=== PATIENT | female | born 1980 | race Caucasian/White ===

== ENCOUNTER 2020-04-20 22:05 | Observation (INO) ==
[2020-04-20 22:28] LABS: Basophils % 0.1 % (0.0-0.8); Hematocrit 36.9 VOL% (35.7-47.0); Hemoglobin 12.5 GM/DL (12.0-16.0); Immature Granulocytes % 0.9 %; Lymphocytes # 0.4 10*3/uL (1.4-4.0); Mean Corpuscular HGB Conc 33.9 GM/DL (32-36); Mean Corpuscular Volume 88.3 FL (87-102); Monocytes % 4.1 % (1.7-12.7); Neutrophils % 90.9 % (38.7-73.9); Platelet Count 275 T/CUMM (130-400); Red Blood Count 4.18 MC/CUMM (3.8-5.5); Red Cell Distribution Width 13.2 % (9.3-17.3)
[2020-04-20 22:47] LABS: Alanine Aminotransferase 63 U/L (13-56); Albumin 2.4 G/DL (3.4-5.0); Alkaline Phosphatase 78 U/L (45-117); Aspartate Amino Transferase 38 U/L (0-37); Bilirubin,Total < 0.39 MG/DL (0.2-1.0); Blood Urea Nitrogen 10 MG/DL (7-18); Calcium 8.5 MG/DL (8.5-10.1); Estimated Glom Filtration Rate 70 ML/MIN; Glucose 137 MG/DL (74-106); Total Protein 6.9 G/DL (6.4-8.3)
[2020-04-21] MEDS ORDERED: ONDANSETRON 4 MG/2 ML VIAL IV PRN (02:13)
[2020-04-21] MEDS ORDERED: ACETAMINOPHEN 325 MG TABLET PO PRN (02:13)
[2020-04-21] MEDS: SODIUM CHLORIDE 0.9% 1,000 ML IV SCH ×2 (02:38→09:54)
[2020-04-21] MEDS: DEXAMETHASONE 4 MG/1 ML VIAL IV SCH ×4 (02:41→21:23)
[2020-04-21] MEDS: FAMOTIDINE 20 MG/2 ML VIAL IV SCH ×3 (02:44→21:23)
[2020-04-21] MEDS: PIPERACILLIN/TAZOBACTAM 3,375 MG in SODIUM CHLORIDE 0.9% 100 ML IV SCH ×3 (02:45→17:30)
[2020-04-21 02:49] LABS: Band Neutrophils 2 % (0-10); Lymphocytes 3 % (20-55); Platelet Estimate Normal; Segmented Neutrophils 92 % (50-85); Total Cells Counted 100
[2020-04-21 07:06] LABS: Basophils % 0.1 % (0.0-0.8); Hematocrit 36.2 VOL% (35.7-47.0); Hemoglobin 12.2 GM/DL (12.0-16.0); Immature Granulocytes Absolute 0.08 #; Lymphocytes # 0.7 10*3/uL (1.4-4.0); Lymphocytes % 8.7 % (21.3-54.2); Mean Corpuscular HGB Conc 33.7 GM/DL (32-36); Mean Corpuscular Volume 87.4 FL (87-102); Mean Platelet Volume 9.2 FL (9.6-12.0); Monocytes % 2.9 % (1.7-12.7); Neutrophils % 87.3 % (38.7-73.9); Platelet Count 287 T/CUMM (130-400); Red Blood Count 4.14 MC/CUMM (3.8-5.5); Red Cell Distribution Width 13.2 % (9.3-17.3)
[2020-04-21 07:29] LABS: Albumin 2.3 G/DL (3.4-5.0); Bilirubin,Total 0.7 MG/DL (0.2-1.0); Calcium 8.5 MG/DL (8.5-10.1); Total Protein 6.7 G/DL (6.4-8.3)
[2020-04-21 07:52] LABS: Anisocytosis 1+; Band Neutrophils 15 % (0-10); Lymphocytes 5 % (20-55); Platelet Estimate Normal; Segmented Neutrophils 77 % (50-85); Total Cells Counted 100
[2020-04-21] MEDS ORDERED: CYCLOBENZAPRINE 10 MG TABLET PO PRN (07:57)
[2020-04-21] MEDS ORDERED: MELATONIN 3 MG TABLET PO PRN (07:57)
[2020-04-21] MEDS: PANTOPRAZOLE 40 MG TABLET PO SCH ×2 (08:41→21:24)
[2020-04-21] MEDS: DOCUSATE SODIUM 100 MG CAPSULE PO SCH ×2 (08:41→21:23)
[2020-04-21] MEDS ORDERED: DEXAMETHASONE 4 MG TABLET PO SCH (09:00)
[2020-04-21] MEDS: FUROSEMIDE 20 MG TABLET PO SCH (11:32)
[2020-04-21] MEDS: RIVAROXABAN 20 MG TABLET PO SCH (11:32)
[2020-04-21] MEDS: SPIRONOLACTONE 50 MG TABLET PO SCH ×2 (11:32→21:22)
[2020-04-21] MEDS: HYDROXYCHLOROQUINE 200 MG TABLET PO SCH (11:32)
[2020-04-21] MEDS: CEFUROXIME 500 MG TABLET PO SCH ×2 (11:32→21:23)
[2020-04-21] MEDS: DEXTROMETHORPHAN ER 6 MG/ML 90 ML/BOTTLE PO PRN ×2 (11:33→23:55)
[2020-04-21] MEDS ORDERED: LEFLUNOMIDE 10 MG TABLET PO SCH (21:00)
[2020-04-21] MEDS: PRAMIPEXOLE 0.25 MG TABLET PO SCH (21:23)
[2020-04-21] MEDS: ASPIRIN CHEW 81 MG TABLET PO SCH (21:23)
[2020-04-21] MEDS: CETIRIZINE 10 MG TABLET PO SCH (21:24)
[2020-04-21] MEDS: SOLIFENACIN 5 MG TABLET PO SCH (21:24)
[2020-04-21] MEDS: FLUoxetine 20 MG CAPSULE PO SCH (21:24)
[2020-04-21] MEDS ORDERED: traZODone 50 MG TABLET PO PRN (21:31)
[2020-04-22] MEDS: PIPERACILLIN/TAZOBACTAM 3,375 MG in SODIUM CHLORIDE 0.9% 100 ML IV SCH ×3 (02:30→17:43)
[2020-04-22] MEDS: DOCUSATE SODIUM 100 MG CAPSULE PO SCH ×2 (08:59→20:45)
[2020-04-22] MEDS: ZINC SULFATE 220 MG CAPSULE PO SCH ×3 (08:59→16:19)
[2020-04-22] MEDS: CEFUROXIME 500 MG TABLET PO SCH ×2 (08:59→20:45)
[2020-04-22] MEDS: SPIRONOLACTONE 50 MG TABLET PO SCH ×2 (08:59→20:45)
[2020-04-22] MEDS: LACTOBACILLUS ACIDOPHILUS/BULGARICUS CAPLET PO SCH (08:59)
[2020-04-22] MEDS: PANTOPRAZOLE 40 MG TABLET PO SCH ×2 (09:00→20:45)
[2020-04-22] MEDS: DEXAMETHASONE 4 MG/1 ML VIAL IV SCH ×2 (09:00→20:45)
[2020-04-22] MEDS: RIVAROXABAN 20 MG TABLET PO SCH (09:00)
[2020-04-22] MEDS: FUROSEMIDE 20 MG TABLET PO SCH (09:00)
[2020-04-22] MEDS: HYDROXYCHLOROQUINE 200 MG TABLET PO SCH (09:00)
[2020-04-22] MEDS: FAMOTIDINE 20 MG/2 ML VIAL IV SCH ×2 (09:00→20:47)
[2020-04-22] MEDS ORDERED: ALBUTEROL INHALER 18 GM INH PRN (09:51)
[2020-04-22] MEDS ORDERED: ONDANSETRON 4 MG/2 ML VIAL IV PRN (18:18)
[2020-04-22] MEDS: DEXTROMETHORPHAN ER 6 MG/ML 90 ML/BOTTLE PO PRN (18:36)
[2020-04-22] MEDS: FLUoxetine 20 MG CAPSULE PO SCH (20:45)
[2020-04-22] MEDS: SOLIFENACIN 5 MG TABLET PO SCH (20:45)
[2020-04-22] MEDS: ASPIRIN CHEW 81 MG TABLET PO SCH (20:45)
[2020-04-22] MEDS: CETIRIZINE 10 MG TABLET PO SCH (20:45)
[2020-04-22] MEDS: PRAMIPEXOLE 0.25 MG TABLET PO SCH (20:45)
[2020-04-23] MEDS: PIPERACILLIN/TAZOBACTAM 3,375 MG in SODIUM CHLORIDE 0.9% 100 ML IV SCH ×2 (02:16→09:30)
[2020-04-23 07:50] VITALS: BP 105/44
[2020-04-23] MEDS: FUROSEMIDE 20 MG TABLET PO SCH (09:07)
[2020-04-23] MEDS: PANTOPRAZOLE 40 MG TABLET PO SCH (09:07)
[2020-04-23] MEDS: CEFUROXIME 500 MG TABLET PO SCH (09:07)
[2020-04-23] MEDS: RIVAROXABAN 20 MG TABLET PO SCH (09:07)
[2020-04-23] MEDS: LACTOBACILLUS ACIDOPHILUS/BULGARICUS CAPLET PO SCH (09:07)
[2020-04-23] MEDS: FAMOTIDINE 20 MG/2 ML VIAL IV SCH (09:08)
[2020-04-23] MEDS: ZINC SULFATE 220 MG CAPSULE PO SCH (09:08)
[2020-04-23] MEDS: DEXAMETHASONE 4 MG/1 ML VIAL IV SCH (09:08)
[2020-04-23] MEDS: HYDROXYCHLOROQUINE 200 MG TABLET PO SCH (09:08)
[2020-04-23] MEDS: SPIRONOLACTONE 50 MG TABLET PO SCH (09:09)
[2020-04-23] MEDS: DOCUSATE SODIUM 100 MG CAPSULE PO SCH (09:09)
== END 2020-04-23 10:55 | disposition home or self-care (01) ==
LOC: N.ED 22:05 → N.EDINP 22:05 → N.2E 04-21 01:39
PROVIDERS: ADMIT Family Medicine; ATTEND Family Medicine